=== PATIENT | male | born 1955 | race African-American/Black ===

== ENCOUNTER 2024-07-31 12:51 | Outpatient (AMB) | payer MEDICARE, OTHER, SELFPAY ==
--- OUTSIDE RECORDS SUMMARY | 2024-07-31 13:41 | XMS_ITS | Encounter Summary ---
Author Organization [facility] Address [address] [place] [address] Care Team Providers Care Assignment Officer Name Role Phone Pcp, No Primary Care Provider Unavailabl e Encounter Details Date Type Department Care Team (Late st Contact Info) Description 07/31/2015 Scanned Document [address] [id number] Provider, Generic Social History Tobacco Use Types Packs/Day Years Used Date Smoking Tobacco: Never Assessed Sex and Gender Information Value Date Recorded Sex Assigned at Not on file Gender Identity Not on file Sexual Orientation Not on file documented as of this encounter Plan of Treatment Not on file documented as of this encounter Visit Diagnoses Not on filedocumented in this encounter Care Teams Assignment Officer Relationship Specialty Start Date End Date Pcp, No PCP - General General Medicine 07/31/15 documented as of this encounter
--- OUTSIDE RECORDS SUMMARY | 2024-07-31 13:41 | XMS_ITS | Clinical Summary ---
Author Organization [facility] Address [address] [place] [address] Care Team Providers Care Host/Hostess Head Name Role Phone Pcp, No Primary Care Provider Unavailabl e Allergies No known active allergies Medications Medication Sig Dispensed Refills Start Date End Date Status butalbital-acetaminop hen-caffeine (FioriCET, ESGIC) 50-325-40 mg tablet TAKE 1 TO 2 TABLETS BY MOUTH EVERY 4 TO 6 HOURS NEEDED FOR HEADACHE. MAX 6 TABS/24 HOURS 0 08/26/2016 Active lisinopril (PRINIVIL,ZeSTRIL) 10 MG tablet 09/28/2016 Active melatonin 5 MG Tab tablet Take 5 mg by mouth nightly as needed. as needed for insomnia 5 08/26/2016 Active phenazopyridine (PYRIDIUM) 200 MG tablet 0 10/21/2016 Active gentamicin (GARAMYCIN) 0.3 % ophthalmic solutionIndications:W ork related injury,Vision decreased,Blepharitis of left upper eyelid, unspecified type Administer 1 drop into the left eye every 4 (four) hours. 5 mL 0 11/02/2016 Active Active Problems Problem Noted Date Diagnosed Date Work related injury 11/02/2016 Vision decreased 11/02/2016 Blepharitis of left upper eyelid 11/02/2016 Essential hypertension 10/11/2016 Generalized headaches 10/11/2016 Examination, physical, employee 10/11/2016 Social History Tobacco Use Types Packs/Day Years Used Date Smoking Tobacco: Never Alcohol Use Standard Drinks/Week Comments Not Asked 0 (1 standard drink = 0.6 oz pur e alcohol) Sex and Gender Information Value Date Recorded Sex Assigned at Not on file Gender Identity Not on file Sexual Orientation Not on file Last Filed Vital Signs Vital Sign Reading Time Taken Comments Blood Pressure 124/70 11/02/2016 4:21 PM EDT Pulse - - Temperature - - Respiratory Rate - - Oxygen Saturation - - Inhaled Oxygen Concentration - - Weight 101 kg (222 lb) 11/02/2016 4:21 PM EDT Height 175.3 cm (5' 9 ) 11/02/2016 4:21 PM EDT Body Mass Index 32.78 11/02/2016 4:21 PM EDT Plan of Treatment Health Maintenance Due Date Last Done Comments Hepatitis C Virus Screening 1955 DTaP/Tdap/Td Vaccines (1 - Tdap) 01/12/1972 Colonoscopy 1998 Pneumococcal Vaccines 50+ (1 of 1 - PCV) 2003 Zoster (Shingles) Vaccine (1 of 2) 2003 Influenza Vaccine 02/02/2024 COVID-19 Vaccine ( - 2023-2 5 season) 2024 RSV Vaccine 60 years and old er and Patients (1 - 1-dose 75+ series) 01/12/2028 Hepatitis B Vaccines Aged Out No long er eligible based on patient's age to complete this topic Care Teams Host/Hostess Head Relationship Specialty Start Date End Date Pcp, No PCP - General General Medicine 07/31/15
--- OUTSIDE RECORDS SUMMARY | 2024-07-31 13:41 | XMS_ITS | Clinical Summary ---
Author Organization [facility] Address [address] [place] [address] Care Team Providers Care Chair Frame Builder Name Role Phone Unavailable Primary Care Provider Unavailabl e Allergies No known active allergies Medications Medication Sig Dispensed Refills Start Date End Date Status sucralfate (CARAFATE) 1 GM/10ML suspension Take 10 mL (1 g total) by mouth 4 (four) times a day. 420 mL 0 12/26/2015 Active Social History Tobacco Use Types Packs/Day Years Used Date Smoking Tobacco: Never Alcohol Use Standard Drinks/Week Comments No 0 (1 standard drink = 0.6 oz pur e alcohol) Sex and Gender Information Value Date Recorded Sex Assigned at Not on file Gender Identity Not on file Sexual Orientation Not on file Last Filed Vital Signs Vital Sign Reading Time Taken Comments Blood Pressure 143/83 12/26/2015 8:42 PM EDT Pulse 52 12/26/2015 8:42 PM EDT Temperature 36.9 ??C (98.5 ??F) 12/26/2015 8:42 PM ED T Respiratory Rate 14 12/26/2015 8:42 PM EDT Oxygen Saturation 100% 12/26/2015 8:42 PM EDT Inhaled Oxygen Concentration - - Weight - - Height - - Body Mass Index - - Plan of Treatment Health Maintenance Due Date Last Done Comments Hepatitis C Screening 1955 COVID-19 Vaccine (#1) 1953 Depression Screening 1965 Preventative Health Evaluation 1971 DTap / Tdap / Td (1 - Tdap) 01/12/1972 Colon Cancer Screening (Colonoscopy) 1998 Shingrix-Zoster Vaccine (1 of 2) 2003 Fall Risk Assessment 2018 Pneumococcal Vaccine (1 of 1 - PCV) 2018 Influenza Vaccine (#1) 2024 RSV Adult > 60+ Yrs or Pregn ant (1 - 1-dose 75+ series) 01/12/2028 Hepatitis B Vaccines Aged Out No long er eligible based on patient's age to complete this topic RSV Ped < 20 months Aged Out No longe r eligible based on patient's age to complete this topic
--- OUTSIDE RECORDS SUMMARY | 2024-07-31 13:41 | XMS_ITS | Clinical Summary ---
Author Organization [facility] Address [address] [place] [address] Care Team Providers Care Dairy Bar Manager Name Role Phone Claudine Suresh MD Primary Care Provider + Surgical History Surgery Date Site/Laterality Comments OTHER SURGICAL HISTORY PROCEDURE: DENIES PREVIOUS SURGERY COLONOSCOPY 01/03/12 PROCEDURE: HISTORICAL COLONOSCOPY; COMMENT: normal; repeat in 5 yrs Medical History Medical History Date Comments Hyperlipidemia DX:Hyperlipidemi a Family History Medical History Relation Name Comments Colon cancer Mother at 83; dx at 81 Relation Name Status Comments Mother Social History Tobacco Use Types Packs/Day Years Used Date Smoking Tobacco: Never Alcohol Use Standard Drinks/Week Comments Yes 0 (1 standard drink = 0.6 oz pur e alcohol) Sex and Gender Information Value Date Recorded Sex Assigned at Not on file Gender Identity Not on file Sexual Orientation Not on file Obstetrics History Plan of Treatment Health Maintenance Due Date Last Done Comments Zoster Vaccines (1 of 2) 2003 Pneumococcal Vaccine: 65+ Ye ars (1 of 1 - PCV) 2018 DTaP,Tdap,and Td Vaccines (2 - Td or Tdap) 08/11/2020 08/11/2010 Abdominal Aortic Aneurysm (A AA) Screen 08/02/2023 Cholesterol Screening (Lipid Panel) 08/02/2023 Colorectal Cancer Screening: Colonoscopy 08/02/2023 Depression Screening 08/02/2023 Falls Risk Assessment 08/02/2023 Hepatitis C Screening 08/02/2023 Social Influencers of Health Screening 08/02/2023 COVID-19 Vaccine (1 - 2023-2 5 season) 2024 Influenza Vaccine (#1) 2024 08/11/2010 RSV Immunization Patients 60 + Years Old (1 - 1-dose 75+ series) 01/12/2028 Hepatitis A Vaccines Aged Out 08/11/2010 No long er eligible based on patient's age to complete this topic MMR Vaccines Aged Out 08/11/2010 No longer eligi ble based on patient's age to complete this topic HIB Vaccines Aged Out No longer eligi ble based on patient's age to complete this topic HPV Vaccines Aged Out No longer eligi ble based on patient's age to complete this topic Hepatitis B Vaccines Aged Out No long er eligible based on patient's age to complete this topic IPV Vaccines Aged Out No longer eligi ble based on patient's age to complete this topic Meningococcal ACWY Vaccine Aged Out N o longer eligible based on patient's age to complete this topic RSV Immunization Patients Un thelma 20 months Aged Out No longer eligible b ased on patient's age to complete this topic Varicella Vaccines Aged Out No longer eligible based on patient's age to complete this topic Care Teams Dairy Bar Manager Relationship Specialty Start Date End Date Claudine Suresh MD [facility] [address] [place] [address] PCP - General Internal Medicine 08/12/15
--- OUTSIDE RECORDS SUMMARY | 2024-07-31 13:41 | XMS_ITS | Data Portability ---
Author Organization [facility] [address] Address [address] [place] [address] Assessment No assessment recorded. Plan of Treatment Reminders Order Date Submit Date Provider Last Modified By Organization Details Last Modified Time Details Appointments None recorded. Lab urinalysis, dipstick 2022 023 [email or web address] [facility], [address] [place], [address], 19:56:40 Referral emergency medicine referral - RLQ abdominal pain x 1 day. No nausea, vomiting or diarrhea. no rebound tenderness or guarding. Need to rule out appendiciti s among other pathologies . [email or web address] [facility], [address] [place], [address], 20:01:18 Procedures None recorded. Surgeries None recorded. Imaging None recorded. Medication Orders None recorded. Patient TargetsNo targets recorded. Patient Instructions Encounter Date Encounter Id Patient Instructions Last Modified By Organization Details Last Modified Time 09/09/2022 [id number] Abdominal pain can have a wide variety of causes. we cannot totally exclude the possibility of your symptoms being due a serious underlying problem. Unless ALL of your symptoms have COMPLETELY resolved, you should follow up at the nearest Emergency Department in 6 hours to be rechecked. If your pain worsens, you should not hesitate to go to the Emergency Department to have your condition further evaluated. You should also follow up immediately if you develop any new symptoms which concern you, such as fever, nausea, vomiting, rectal bleeding, or any other symptom that concerns you. Failure to follow up as instructed above may result in serious adverse health consequences, including permanent disability or . [email or web address] Not available 09/09/2022 19:56:33 Reason for Referral Emergency Medicine Referral for Right lower quadrant pain RLQ abdominal pain x 1 day. No nausea, vomiting or diarrhea. no rebound tenderness or guarding. Nee RLQ abdominal pain x 1 day. No nausea, vomiting or diarrhea. no rebound tenderness or guarding. Need to rule out appendicitis among other pathologies. Referring Physician: Collin Henry, Urgent Care, Encounter Date: 09/09/2022 Results Created Date Observation Date Name Description Value Unit Range Abnormal Flag Note LastModifiedBy Organization Detail LastModifiedTime 09/10/1909/09/2022 urina lysis , dipst ick Unknown Analyte Normal = light yellow Not Available [facility] [address] [place], [address], 09/09/2022 19:27:11 09/10/1909/09/2022 urina lysis , dipst ick Unknown Analyte Yellow Not Available [facility] [address] [place], [address], 09/09/2022 19:27:11 09/10/1909/09/2022 urina lysis , dipst ick Unknown Analyte Normal = clear Not Available [facility] [place], [address], 09/09/2022 19:27:11 09/10/1909/09/2022 urina lysis , dipst ick Unknown Analyte Clear Not Available _ [facility] [address] [place], [address], 09/09/2022 19:27:11 09/10/1909/09/2022 urina lysis , dipst ick Unknown Analyte Normal = negati ve Not Available [facility] [address] [place], [address], 09/09/2022 19:27:11 09/10/19 23 09/09/2022 urina lysis , dipst ick Unknown Analyte Negati ve Not Available [facility] [address] [place], [address], 09/09/2022 19:27:11 09/10/19 23 09/09/2022 urina lysis , dipst ick Unknown Analyte Normal = Negati ve Not Available [facility] [address] [place], [address], 09/09/2022 19:27:11 09/10/1909/09/2022 urina lysis , dipst ick Unknown Analyte Negati ve Not Available [facility] [address] [place], [address], 09/09/2022 19:27:11 09/10/1909/09/2022 urina lysis , dipst ick Unknown Analyte Normal = Negati ve Not Available [facility] [address] [place], [address], 09/09/2022 19:27:11 09/10/1909/09/2022 urina lysis , dipst ick Unknown Analyte Negati ve Not Available [facility] [address] [place], [address], 09/09/2022 19:27:11 09/10/19 23 09/09/2022 urina lysis , dipst ick Unknown Analyte Normal = 1.010, 1.015, 1.020 Not Available [facility] [address] [place], [address], 09/09/2022 19:27:11 09/10/19 23 09/09/2022 urina lysis , dipst ick Unknown Analyte 1.020 Not Available [facility] [address] [place], [address], 09/09/2022 19:27:11 09/10/1909/09/2022 urina lysis , dipst ick Unknown Analyte Normal = Negati ve Not Available [facility] [address] [place], [address], 09/09/2022 19:27:11 09/10/1909/09/2022 urina lysis , dipst ick Unknown Analyte Negati ve Not Available [facility] [address] [place], [address], 09/09/2022 19:27:11 09/10/1909/09/2022 urina lysis , dipst ick Unknown Analyte Normal = 6.5, 7.0, 7.5, 8.0 Not Available [facility] [address] [place], [address], 09/09/2022 19:27:11 09/10/1909/09/2022 urina lysis , dipst ick Unknown Analyte 5.5 Not Available [facility] [address] [address] [place], [address], 09/09/2022 19:27:11 09/10/1909/09/2022 urina lysis , dipst ick Unknown Analyte Normal = Negati ve Not Available [facility] [address] [place], [address], 09/09/2022 19:27:11 09/10/1909/09/2022 urina lysis , dipst ick Unknown Analyte Negati ve Not Available [facility] [address] [place], [address], 09/09/2022 19:27:11 09/10/19 23 09/09/2022 urina lysis , dipst ick Unknown Analyte Normal = 0.2, 1.0 Not Available [facility] [address] [place], [address], 09/09/2022 19:27:11 09/10/19 23 09/09/2022 urina lysis , dipst ick Unknown Analyte 0.2 E.U./d L Not Available [facility] [place], [address], 09/09/2022 19:27:11 09/10/19 23 09/09/2022 urina lysis , dipst ick Unknown Analyte Normal = Negati ve Not Available [facility] [address] [place], [address], 09/09/2022 19:27:11 09/10/19 23 09/09/2022 urina lysis , dipst ick Unknown Analyte Negati ve Not Available [facility] [address] [place], [address], 09/09/2022 19:27:11 09/10/19 23 09/09/2022 urina lysis , dipst ick Unknown Analyte Normal = Negati ve Not Available [facility] [address] [place], [address], 09/09/2022 19:27:11 09/10/19 23 09/09/2022 urina lysis , dipst ick Unknown Analyte Negati ve Not Available [facility] [address] [place], [address], 09/09/2022 19:27:11 Result Notes None recorded. Problems Name Problem SNOMED Code Status Onset Date Resolution Date Notes Provider Name and Address Organization Details Recorded Time Hypertensive disorder 74355578 Active [facility] - [facility] 19:26:23 Gout 65947125 Active Grahamruby Vallejo ana, [place] - [facility] 19:26:50 Problem Notes None recorded. Medical Equipment None Reported. Allergies No known drug allergies Medications Name Sig Start Date Stop Date Status Note LastModified by Organization Details LastModified Time prednisone 10 mg tablet TAKE 4 TABLETS BY MOUTH ON DAYS 1-3, 3 TABS ON DAYS 4-5, 2 TABS ON DAYS 6-7 AND 1 TAB ON DAYS 8-9 09/09 completed Not Available Not Available Not Available allopurinol 100 mg tablet TAKE 2 TABLETS BY MOUTH EVERY DAY active Not Available Not Available No t Available lisinopril 10 mg tablet TAKE 1 TABLET BY MOUTH EVERY DAY active Not Available Not Available No t Available omeprazole 20 mg capsule,del ayed release TAKE 1 CAPSULE BY MOUTH TWICE A DAY active Not Available Not Available No t Available methylpredn isolone 4 mg tablets in a dose pack TAKE 6 TABLETS ON DAY 1 DIRECTED ON PACKAGE AND DECREASE BY 1 TAB EACH DAY FOR A TOTAL OF 6 DAYS active Not Available Not Available No t Available BinaxNOW COVID-19 Ag Self Test kit TEST DIRECTED TODAY active Not Available Not Available No t Available Vitals Date Recorded Body height Provider Name an d Address Organization Details Last Updated DateTime 09/09/2022 175.26 cm Graham Vallejo [facility] - [facility] 09/09/2022 19:25:08 Date Recorded Body mass index (BMI) Body weight Provider Name and Address Organization Details Last Updated DateTime 09/09/2022 31 kg/m2 08751.4 g Graham Genevieve PA - [facility] 09/09/2022 19:25:13 Date Recorded Oxygen saturation Oxygen saturation in Arterial blood by Pulse oximetry Provider Name and Address Organization Details Last Updated DateTime 09/09/2022 100 % 100 % Graham Genevieve PA - [facility] 09/09/2022 19:25:28 Date Recorded Pain severity - 0-10 verbal numeric rating [Score] - Reported Provider Name and Address Organization Details Last Updated DateTime 09/09/2022 8 Graham Genevieve PA - [facility] 09/09/2022 19:25:30 Date Recorded Heart rate Provider Name an d Address Organization Details Last Updated DateTime 09/09/2022 76 /min Graham Genevieve PA - [facility] 09/09/2022 19:25:36 Date Recorded Respiratory rate Provider Name a nd Address Organization Details Last Updated DateTime 09/09/2022 18 /min Graham Guzmanmoah PA - [facility] 09/09/2022 19:25:40 Date Recorded Body temperature Provider Name a nd Address Organization Details Last Updated DateTime 09/09/2022 97.6 [degF] Graham Vallejo PA - [facility] 09/09/2022 19:25:49 Date Recorded Systolic blood pressure Diastolic blood pressure Provider Name and Address Organization Details Last Updated DateTime 09/09/2022 138 mm[Hg] 87 mm[Hg] Grahamruby Guzmanmoah PA - [facility] 09/09/2022 19:25:24 Social History Question Answer Notes LastModified by Organizat ion Details LastModified Time Have You Had Direct Contact, Or Contact During Intimacy, With Monkeypox Rash, Scabs, Or Body Fluids From A Person With Monkeypox? No Information not available 09/09/2022 Do You Use Any Illicit Or Recreational Drugs? No Information not available 09/09/2022 Have You Recently Traveled Abroad? Yes Information not available 09/09/2022 Do You Or Have You Ever Used Any Other Forms Of Tobacco Or Nicotine? No Information not available 09/09/2022 Sex: Unknown Functional Status None recorded. Mental Status None recorded. Family History Relationship Description Onset Age of this Age Resolved Age Notes LastModified by Organization Details LastModified Time Father No current problems or disability Not available 09/09 19:26:52 Mother No current problems or disability Not available 09/09 19:26:52 Medical History No medical history recorded. Immunizations Vaccine Type Date Status Note Provider Nam e and Address Organization Details Recorded Time MMR 1 completed Graham perez PA - [facility] 09/09/2022 19:25:52 COVID-19, mRNA, LNP-S, PF, 100 mcg/0.5mL dose or 50 mcg/0.25mL dose completed Graham Genevieve null, PA - [facility] 09/09/2022 19:25:52 COVID-19, mRNA, LNP-S, PF, 100 mcg/0.5mL dose or 50 mcg/0.25mL dose 1 completed Graham Genevieve null, PA - [facility] 09/09/2022 19:25:52 COVID-19, mRNA, LNP-S, PF, 100 mcg/0.5mL dose or 50 mcg/0.25mL dose 1 completed Graham Genevieve null, PA - [facility] 09/09/2022 19:25:52 pneumococcal polysaccharide PPV23 2 completed Graham Genevieve null, PA - [facility] 09/09/2022 19:25:52 Influenza, split virus, trivalent, preservative 1 completed Graham Genevieve null, PA - [facility] 09/09/2022 19:25:52 Td (adult), 2 Lf tetanus toxoid, preservative free, adsorbed 1 completed Graham Genevieve null, PA - [facility] 09/09/2022 19:25:52 Hep A, adult 1 completed Graham Genevieve null, PA - [facility] 09/09/2022 19:25:52 Past Encounters Encounter ID Performer Location Encounter Start Date Encounter Closed Date Diagnosis/Indication Diagnosis SNOMED-CT Code Diagnosis ICD10 Code Diagnosis Note [id number] [address] [place] [address] 10/21/2016 12:01:46 10/21/2016 12:50:15 [id number] [address] [place] [address] 07/25/2018 17:12:02 07/25/2018 18:49:28 [id number] [address] [address] [place] [address] 03/25/2018 12:13:52 03/25/2018 13:29:18 [id number] [address] [place] [address] 08/07/2016 12:09:53 08/07/2016 12:46:22 [id number] [address] [place] [address] 10/29/2018 10:59:26 10/29/2018 11:17:43 [id number] [place] [address] [place] [address] 09/09/2022 19:13:55 09/09/2022 20:01:18 Right lower quadrant pain 089119025 R10.31 Health Concerns Section Related Observation LastModified by Organization Detai ls LastModified Time None Recorded Concern Status LastModified by Organization Details LastModified Time None Recorded Advance Directives Directive None Recorded Payers Encounter Date Sequence Insurance Name Policy Number Policy Llamas Covered Member ID Llamas Member ID Guarantor Name 10/21/2016 1 [facility] [id number] Luis Santacruz [id number] Luis Santacruz 03/25/2018 1 [facility] [id number] Luis Santacruz [id number] Luis Santacruz 07/25/2018 1 [employer] [id number] Luis Santacruz [id number] Luis Santacruz 10/29/2018 1 [facility] [id number] Luis Santacruz [id number] Luis Santacruz 09/09/2022 1 [facility] [id number] Luis Santacruz [id number] Luis Santacruz Notes Date Note Type Note Provider Name and Address Organization Details Recorded Time 09/09/2022 text/html Abdominal pain RLQ x 1 day. denies any fever , nausea and vomiting. denies any History renal stones. denies any history of back pain. Collin Henry NP [address] [place], [address], PA - [facility] 09/09/2022 20:00:39
--- NOTE | 2024-07-31 14:21 | AM.OFFWIN_ITS ---
Intake Vital Signs 07/31/24 14:26 Weight 229 lb BP 130/98 H Blood Pressure Location Rt brachial Position Sitting Pulse 78 Pulse Source Pulse Oximeter Pulse Oximetry (%) 98 Oxygen Delivery Method Room Air Intake Visit Reasons: [employer] irregular heartbeat, sent from Intake Note: Patient here for irregular heartbeat and was sent by [facility] [employer]. Patient Tobacco Use Status: Never used Tobacco Allergies No Known Allergies Allergy (Verified 07/31/24 14:27) Do you need a note to return to daycare/school/sports/work: No HPI HPI Comments History of Present Illness Details This is a 69-year-old male with a past medical history of hypertension who is not always compliant with his losartan presenting from the [facility] for evaluation of a possible arrhythmia. 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 Patient states that he is feeling well and denies having any chest pain, cough, shortness for breath, nausea, vomiting, abdominal pain or back pain. PFSH Social History Patient Tobacco Use Status: Never used Tobacco Review of Systems Const All systems reviewed & are unremarkable except as noted in HPI and below Denies body aches, Denies chills, Denies fatigue, Denies fever(s), Denies headache(s), Denies lethargy and Denies weakness Eyes Reports no additional complaints and Denies change in vision ENT Reports no additional complaints and Denies headache(s) Card Denies chest pain Resp Reports no additional complaints GI Reports no additional complaints Reports no additional complaints Musc Reports no additional complaints Skin/Breast Reports system reviewed and no additional complaints, except as documented Neuro Reports no additional complaints, Denies headache(s) and Denies weakness Psych Reports no additional complaints Endo Reports no additional complaints and Denies fatigue Elier/Lymph Reports no additional complaints Physical Exam Vital Signs: Last Vital Signs Pulse 78 07/31/24 14:26 BP 130/98 H 07/31/24 14:26 Pulse Ox 98 07/31/24 14:26 Oxygen Delivery Method Room Air 07/31/24 14:26 Const General: cooperative, healthy appearing, comfortable, no acute distress, well developed, alert, awake and Physically active; No acute distress Nutritional Appearance: average body habitus Orientation/consciousness: patient oriented x3 Limitations: no limitations Resp Effort & Inspection: normal respiratory effort, able to speak in complete sen tences, no cough and not tachypneic Auscultation: clear to auscultation bilaterally Cardio Rate: regular rate Rhythm: regular rhythm Skin General skin exam: no rashes or lesions noted Neuro General: patient oriented x3 Psych Appearance: grossly normal Mental Status: mental status grossly normal Insight: Good insight present (Psych) Judgement: Good judgement present (Psych) Results AMB Urinalysis Automated WC UR Glucose Negative Last Edit by Veronica Crowder RN on 07/31/24 11:28 UR Ketone Negative Last Edit by Veronica Crowder RN on 07/31/24 11:28 UR Specific [place] 1.020 Last Edit by Veronica Crowder RN on 07/31/24 11:2 8 UR Blood Negative Last Edit by Veronica Crowder RN on 07/31/24 11:28 UR Ph 7.0 Last Edit by Veronica Crowder RN on 07/31/24 11:28 UR Protein Negative Last Edit by Veronica Crowder RN on 07/31/24 11:28 UR Nitrite Negative Last Edit by Veronica Crowder RN on 07/31/24 11:28 UR Leukocytes Negative Last Edit by Veronica Crowder RN on 07/31/24 11:28 Results Reviewed Results Reviewed: EKG sinus rhythm with PACs, rate of 73 beats per minute; sinus rhythm with pre mature supraventricular complexes, rate of 69 beats per minute Assessment & Plan Assessment & Plan (1) Hypertension: Comment: Patient is encouraged to take his losartan daily as previously prescribed and follow up with his primary care physician for ongoing management of his blood pressure. There is no evidence of atrial fibrillation or other arrhythmia requiring cardiac follow up at this time. 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 Orders: Orders AMB EKG-In Office Today I49.8 - Other specified cardiac arrhythmias Coding Level of Care Code Est Pt Level 3 (21547) Diagnoses Hypertension, unspecified type I10 Hypertension type: unspecified Time Spent (min) 20
[2024-07-31 14:26] VITALS: BP 130/98; PULSE 78; O2SAT 98
== END 2024-07-31 15:21 | disposition home or self-care (01) ==
PROVIDERS: Visit Provider Physician Assistant
DX: I10 Essential (primary) hypertension (principal)

== ENCOUNTER → 2024-07-31 12:51 | Outpatient (BNVA) | payer MEDICARE, OTHER, SELFPAY | DX: I10 Essential (primary) hypertension (principal) | CPT/HCPCS: 99212 ==